=== PATIENT | male | born 1980 | race Caucasian/White ===

== ENCOUNTER 2018-04-26 10:53 | Emergency (ER) | payer BC ==
[~2018-04-26] VITALS: Ht 180.3 cm; Wt 111.1 kg
[2018-04-26 10:59] VITALS: BP_SYST 142
[2018-04-26] MEDS ORDERED: ACETAMINOPHEN 500 MG TABLET PO ONE (11:45)
[2018-04-26 12:10] VITALS: BP_SYST 148
== END 2018-04-26 11:57 | disposition home or self-care (01) ==
LOC: SED 10:53
DX: S46.222A Laceration of muscle, fascia and tendon of other parts of biceps, left arm, initial encounter (principal); R03.0 Elevated blood-pressure reading, without diagnosis of hypertension; X58.XXXA Exposure to other specified factors, initial encounter; Y93.89 Activity, other specified; Y92.89 Other specified places as the place of occurrence of the external cause; Y99.8 Other external cause status
CPT/HCPCS: 99283